=== PATIENT | female | born 1985 | race Caucasian/White ===

== ENCOUNTER 2021-11-27 21:31 | Inpatient (IN) | payer MEDICAID ==
[~2021-11-27] VITALS: Ht 160 cm; Wt 52.2 kg
--- NOTE | 2021-11-27 21:40 | NUR ---
CONTACTED POISON CONTROL, SPOKE WITH ANGY PHARMACIST. GAVE INFO ON ACETAMINOPHEN , IBUPROFEN, AND BENADRYL SUSPECTED OVERDOSE. INSTRUCTIONS GIVEN REGARDING SUPPORTIVE CARE.
--- NOTE | 2021-11-27 21:44 | NUR ---
CJ [phone]
--- NOTE | 2021-11-27 21:50 | NUR ---
18G IV LINE ESTABLISHED AT [facility]. BLOOD DRAWN AND SENT TO LAB.
--- NOTE | 2021-11-27 21:56 | NUR ---
COVID SWAB COLLECTED AND SENT TO LAB
--- NOTE | 2021-11-27 21:57 | NUR ---
PT UNABLE TO PROVIDE URINE SAMPLE AT THIS TIME AND REFUSES IN AND OUT CATHETER. WILL ATEMPT COLLECTION AT A LATER TIME.
[2021-11-27] MEDS ORDERED: IV NS 0.9% 1,000 ML BAG IV ONE (22:00)
[2021-11-27 22:17] LABS: BASOPHILS % (AUTO) 0.2 % (0.0-2.0); HEMATOCRIT 39 % (33-45); HEMOGLOBIN 13.4 g/dL (11.5-14.8); LYMPHOCYTES # (AUTO) 1.9 K/uL (0.8-4.8); LYMPHOCYTES % (AUTO) 26.9 % (20.0-44.0); MEAN CORPUSCULAR HGB CONC 34 g/dl (31.0-36.0); MEAN CORPUSCULAR VOLUME 89 fL (82-100); MONOCYTES # (AUTO) 0.5 K/uL (0.1-1.30); MONOCYTES % (AUTO) 7.2 % (2.0-12.0); NEUTROPHILS # (AUTO) 4.6 K/uL (1.8-8.9); NEUTROPHILS % (AUTO) 64.7 % (43.0-81.0); PLATELET COUNT (AUTO) 311 K/uL (150-450); RED BLOOD CELL COUNT(AUTO) 4.44 MIL/uL (4.0-5.2); WHITE BLOOD COUNT (AUTO) 7.1 K/uL (4.3-11.0)
--- NOTE | 2021-11-27 22:27 | NUR ---
URINE COLLECTED AND SENT TO LAB
[2021-11-27 22:36] LABS: BILIRUBIN,URINE NEGATIVE (NEGATIVE); COLOR,URINE OTHER (YELLOW); LEUKOCYTE ESTERASE ,URINE NEGATIVE (NEGATIVE); NITRITE, URINE NEGATIVE (NEGATIVE); PH,URINE 5.5 (5.0-8.0); PROTEIN,URINE NEGATIVE (NEGATIVE); UGLUCOSE NEGATIVE (NEGATIVE); UROBILINOGEN,URINE 0.2 EU/dL (0.2)
[2021-11-27 22:38] LABS: ACETAMINOPHEN 168 ug/ml (10-30); ALANINE AMINOTRANSFERASE 13 U/L (12-78); ALBUMIN 4.4 g/dL (3.4-5.0); ALCOHOL, BLOOD < 3 mg/dL (0-0); ALKALINE PHOSPHATASE 67 U/L (46-116); ASPARTATE AMINOTRANSFERASE 15 U/L (15-37); BILIRUBIN,DIRECT 0.1 mg/dL (0.0-0.2); BILIRUBIN,TOTAL 0.4 mg/dL (0.2-1.0); CALCIUM, SERUM 8.5 mg/dL (8.5-10.1); CARBON DIOXIDE 24 mmol/L (21-32); CHLORIDE 105 mmol/L (98-107); CREATININE 0.7 mg/dL (0.6-1.3); GLUCOSE 104 mg/dL (74-106); POTASSIUM 3.1 mmol/L (3.5-5.1); SODIUM SERUM 139 mmol/L (136-145); TOTAL PROTEIN, SERUM 7.9 g/dL (6.4-8.2); UREA NITROGEN, BLOOD 14 mg/dL (7-18)
[2021-11-27 22:43] LABS: BACTERIA,URINE Rare /HPF (None Seen); SQUAMOUS EPITHELIAL CELL,UR Moderate /HPF (None Seen); WBC,URINE 0-2 /HPF (0-3)
[2021-11-27] MEDS ORDERED: ACETYLCYSTEINE IV 6,000 MG/30 ML VIAL IV ONE (23:11)
[2021-11-27] MEDS ORDERED: ONDANSETRON HCL/PF 4 MG/2 ML VIAL ONE ×2 (23:20→23:57)
[2021-11-27] MEDS ORDERED: ACETYLCYSTEINE IV SCH ×3 (23:30)
[2021-11-27] MEDS ORDERED: ONDANSETRON HCL/PF 4 MG/2 ML VIAL IV ONE (23:30)
[2021-11-27] MEDS ORDERED: D5W IV SCH ×3 (23:30)
[2021-11-27] MEDS ORDERED: POTASSIUM CHLORIDE 20 MEQ TAB.PRT.SR PO ONE (23:50)
[2021-11-27] MEDS ORDERED: POTASSIUM CL. PREMIX PERIPHER. 50 ML ONE (23:57)
[2021-11-28] MEDS ORDERED: POTASSIUM CHLORIDE 10 MEQ/50 ML PREMIXED IVPB FOR PERIPHERAL LINE IV ONE
[2021-11-28] MEDS ORDERED: POTASSIUM CHLORIDE 20 MEQ TAB.PRT.SR PO ONE
[2021-11-28] MEDS ORDERED: ONDANSETRON HCL/PF 4 MG/2 ML VIAL IV ONE
[2021-11-28] MEDS ORDERED: IV NS 0.9% 1,000 ML BAG IV ONE
[2021-11-28] MEDS ORDERED: POTASSIUM CL. PREMIX PERIPHER. 150 ML ONE (00:05)
--- NOTE | 2021-11-28 00:08 | NUR ---
SPOKE TO TISHA WITH POISON CONTROL. WAS INFORMED TO CONTINUE MUCOMYST DRIP AND PERFORM REPEAT TYLENOL AND LFTS PRIOR TO LAST BAG OF ACETADOTE.
--- NOTE | 2021-11-28 00:24 | NUR ---
EPIC PAGED PER DR KEARNS.
[2021-11-28] MEDS ORDERED: METOCLOPRAMIDE HCL 10 MG/2 ML VIAL ONE (00:45)
[2021-11-28] MEDS ORDERED: METOCLOPRAMIDE HCL 10 MG/2 ML VIAL IV ONE (01:00)
[2021-11-28] MEDS ORDERED: IV NS 0.9% 1,000 ML IV PRN (03:30)
[2021-11-28] MEDS ORDERED: ONDANSETRON HCL/PF 4 MG/2 ML VIAL IVP PRN (03:30)
[2021-11-28] MEDS ORDERED: D5W IV SCH ×2 (03:30)
[2021-11-28] MEDS ORDERED: Z GUARD REMEDY 4 OZ OINT TP PRN (03:30)
[2021-11-28] MEDS ORDERED: ACETYLCYSTEINE IV SCH ×2 (03:30)
[2021-11-28] MEDS ORDERED: MAGNESIUM HYDROXIDE 30 ML UDC PO PRN (03:30)
--- NOTE | 2021-11-28 03:45 | NUR ---
REPORT GIVEN TO [facility]
[2021-11-28] MEDS ORDERED: ACETYLCYSTEINE IV 6,000 MG/30 ML VIAL IV ONE (03:56)
[2021-11-28 04:00] VITALS: BP 96/49
--- NOTE | 2021-11-28 04:00 | NUR ---
ADMISSION NOTES PT ARRIVED VIA GURNEY AT APPROXIMATELY 0400 WITH EMT. ABLE TO AMBULATE TO BED. AOx4, ABLE TO MAKE NEEDS KNOWN. ON RA AND TOLERATING WELL. NO SOB NOTED. NO S/SX OF RESPIRATORY DISTRESS NOTED. IV ACCESS IN R HAND #20G AND LAC #18G RUNNING NS @100 ML/HR AND MUCOMYST @ 62.5 ML/HR. SAFETY PRECAUTIONS IN PLACE: BED IN LOWEST, LOCKED POSITION, SIDERAILS UPx2, AND BRAKES ON. TABLE AND CALL LIGHT WITHIN REACH. WILL CONTINUE TO MONITOR.
--- NOTE | 2021-11-28 04:20 | NUR ---
PT TRANSPORTED TO ROOM 321-1 VIA RNEY IN STABLE CONDITION
[2021-11-28 06:33] LABS: ALBUMIN 3.1 g/dL (3.4-5.0); BILIRUBIN,DIRECT 0.1 mg/dL (0.0-0.2); BILIRUBIN,TOTAL 0.3 mg/dL (0.2-1.0); TOTAL PROTEIN, SERUM 6.1 g/dL (6.4-8.2)
--- NOTE | 2021-11-28 07:35 | NUR ---
RN CLOSING NOTES PT IN BED, ASLEEP, ON SIDE. AOx4, ABLE TO MAKE NEEDS KNOWN. ON RA AND TOLERATING WELL. NO SOB NOTED. NO S/SX OF RESPIRATORY DISTRESS NOTED. IV ACCESS IN R HAND #20G AND LAC #18G RUNNING NS @100 ML/HR AND MUCOMYST @ 62.5 ML/HR. ALL ORDERS CARRIED OUT. ALL NEEDS MET. PT KEPT CLEAN AND DRY. SAFETY PRECAUTIONS IN PLACE: BED IN LOWEST, LOCKED POSITION, SIDERAILS UPx2, AND BRAKES ON. TABLE AND CALL LIGHT WITHIN REACH. WILL ENDORSE TO ONCOMING SHIFT FOR [place].
[2021-11-28 08:00] VITALS: BP 97/56
--- NOTE | 2021-11-28 08:00 | NUR ---
RN OPENING NOTE PATIENT RECEIVED IN BED SLEEPING. NO S/SX OF RESPIRATORY DISTRESS OR SOB. NO C/O PAIN. IV ACCESS TO LAC & R-HAND BOTH INTACT, AND PATIENT WITH FLUIDS FLOWING WELL. SAFETY MEASURES IN PLACE WITH BED IN LOWEST POSITION AND LOCKED. SIDE RAILS UP X2 AND CALL LIGHT WITHIN REACH. WILL CONTINUE TO MONITOR.
[2021-11-28] MEDS ORDERED: PANTOPRAZOLE 40 MG VIAL IV SCH (09:00)
[2021-11-28 14:42] LABS: ALBUMIN 2.8 g/dL (3.4-5.0); BILIRUBIN,TOTAL 0.2 mg/dL (0.2-1.0); CALCIUM, SERUM 7.1 mg/dL (8.5-10.1); CREATININE 0.6 mg/dL (0.6-1.3); POTASSIUM 3.2 mmol/L (3.5-5.1); TOTAL PROTEIN, SERUM 5.5 g/dL (6.4-8.2)
[2021-11-28 16:00] VITALS: BP 90/55
[2021-11-28] MEDS ORDERED: PANT40TA2 PO (18:41)
[2021-11-28 18:53] LABS: ALBUMIN 3.1 g/dL (3.4-5.0); BILIRUBIN,TOTAL 0.3 mg/dL (0.2-1.0); CALCIUM, SERUM 7.5 mg/dL (8.5-10.1); CREATININE 0.6 mg/dL (0.6-1.3); POTASSIUM 3.3 mmol/L (3.5-5.1); TOTAL PROTEIN, SERUM 6.1 g/dL (6.4-8.2)
--- NOTE | 2021-11-28 19:45 | NUR ---
RN MS NOTES PT IN BED, AWAKE, ALERT AND ORIENTED, DENIES PAIN, NOT IN DISTRESS, DENIES SUICIDAL IDEATION, ABLE TO WALK TO THE BATHROOM WITH STEADY GAIT, SEEN BY DR. LARES, CLEARED BY PSYCH, ALSO SEEN AND EXAMINED BY DR. NEVES WITH AN CHAIN OFFBEARER, DISCHARGE ORDER GIVEN, DISCHARGE AND MEDICATION INSTRUCTIONS PROVIDED TO PT, VERBALIZED UNDERSTANDING, PER POISON CONTROL WANTS A NEGATIVE TYLENOL LEVEL BEFORE DISCHARGE, LAB ORDERED, PT WILL BE PICKED UP BY , ENDORSED TO SECURITY PATROL OFFICER NURSE.
--- NOTE | 2021-11-28 20:30 | NUR ---
MS SERVICE AIDE NOTE PATIENT ALERT/ORIENTED X 3, PT PRIMARILY [place]IC SPEAKING HOWEVER AT BEDSIDE SPEAKS [place] AND ABLE TO TRANSLATE. PATIENT DENIES SUICIDE IDEATION. ACETAMINOPHEN LEVELS DOWN TO 1. DISCHARGE CHARGE PAPERS EXPLAINED TO AND PATIENT, NEW PRESCRIPTION EXPLAINED WELL, BOTH VERBALIZED UNDERSTANDING. DISCHARGE PAPERS SIGNED BY PATIENT AND COPY GIVEN TO PATIENT. ALL BELONGINGS TAKEN BY PATIENT AND BELONGINGS LIST SIGNED BY PATIENT. IV ON RIGHT HAND AND LEFT AC REMOVED WITH MINIMAL BLEEDING, PRESSURE AND GAUZE APPLIED. PATIENT AMBULATORY. PATIENT PICKED UP BY FOR DISCHARGE HOME, PATIENT AND WALKED DOWN TO HOSPITAL ENTRANCE BY TRACK VEHICLE REPAIRER.
--- NOTE | 2021-11-30 09:21 | NUR ---
SS consult requested over the weekend. Pt. has departed.
== END 2021-11-28 21:14 | disposition home or self-care (01) | DRG 812 ==
LOC: ER 21:38 → TRANSITION 11-28 03:12 → TELE 11-28 03:31 → MED 11-28 04:20
PROVIDERS: ADMIT Student in an Organized Health Care Education/Training Program; ATTEND Student in an Organized Health Care Education/Training Program
DX: T39.1X1A Poisoning by 4-Aminophenol derivatives, accidental (unintentional), initial encounter (principal); G92.8 Other toxic encephalopathy; E44.0 Moderate protein-calorie malnutrition; E87.6 Hypokalemia; K21.9 Gastro-esophageal reflux disease without esophagitis; Z68.20 Body mass index [BMI] 20.0-20.9, adult; F32.A Depression, unspecified; Y92.009 Unspecified place in unspecified non-institutional (private) residence as the place of occurrence of the external cause; E87.0 Hyperosmolality and hypernatremia; Z20.822 Contact with and (suspected) exposure to COVID-19
CPT/HCPCS: 36415; 80048-TC; 80053-TC; 80076-TC; 81001; 82962-TC; 84703-TC; 85025-TC; 85610-TC; 87081-TC; C9113; C9803; G0378; G0480; J0132; J2405; J2765; J3480; J7030; J7060; J7070

== ENCOUNTER 2022-07-30 21:15 | Emergency (ER) | payer MEDICAID ==
[~2022-07-30] VITALS: Ht 162.6 cm; Wt 49.9 kg
[~2022-07-30 21:15] MED LIST: PANT40TA2 PO
[2022-07-30 22:41] VITALS: BP 90/68
[2022-07-30] MEDS ORDERED: LIDOCAINE 5% (PATCH) 1 EA PATCH TP ONE ×2 (23:00→23:34)
[2022-07-30] MEDS ORDERED: HYDROCODONE/APAP 10/325MG TABLET PO ONE (23:00)
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
[2022-07-30] MEDS ORDERED: HYDROCODONE/APAP 10/325MG TABLET ONE (23:34)
[2022-07-31] MEDS ORDERED: METH-649 PO (00:08)
[2022-07-31] MEDS ORDERED: LIDO30AD10 TP (00:08)
--- NOTE | 2022-07-31 01:14 | NUR ---
Patient discharged to home in stable condition. Written and verbal after care instructions given. Patient verbalizes understanding of instruction.
== END 2022-07-31 01:45 | disposition home or self-care (01) ==
LOC: ER 21:17
DX: R07.89 Other chest pain (principal); S16.1XXA Strain of muscle, fascia and tendon at neck level, initial encounter; V49.9XXA Car occupant (driver) (passenger) injured in unspecified traffic accident, initial encounter; Y93.89 Activity, other specified; Y92.89 Other specified places as the place of occurrence of the external cause; Y99.8 Other external cause status
CPT/HCPCS: 71045-TC